=== PATIENT | female | born 1945 | race Caucasian/White ===

== ENCOUNTER → 2016-08-05 | Outpatient (CLI) | payer BC ==
[~2016-08-05] MED LIST: MOBIC; MULTI VITAMIN1 EACH PO; OYSTER CALCIUM500 MG PO
--- NOTE | ~2016-08-05 | CR63 ---
[facility] A Service of [facility] RADIOLOGY TEXT RESULTS PATIENT: PILLO BRITTON LOCATION: [facility] : 45 UNIT #: [id number] AGE: [address]: Kelly Bunch MD SEX: F ORDER DR: [id number] [facility] [address] [place], [place] [address] [id number] O MR#: [id number] Acc #: [id number] NAME: PILLO BRITTON : 1945 SEX: F STUDY DATE/TIME: 08/05/2016 15:49 UNIT: [facility] ROOM: STUDY DESCRIPTION: CR Chest 2 View Attending Physician: Kelly Bunch M.D. Referring Physician: Kelly Bunch M.D. Ordering Physician: Kelly Bunch M.D. Primary Care Physician: Kelly Bunch M.D. MEDICAL IMAGING REPORT This report is preliminary unless electronic signature is present STUDY Chest PA and lateral dated 08/05/2016 COMPARISON STUDIES None HISTORY Chest pain, syncopal episode beginning yesterday. FINDINGS PA and lateral views of the chest are obtained. Cardiovascular configuration in the chest is normal and the lungs are clear. On the lateral film, there is a curvilinear lucency over the retrocardiac area that is felt to be artifactual. CONCLUSION Negative chest. Dictated by... Ventura Plaza M.D. THIS IS AN ELECTRONICALLY VERIFIED REPORT Ventura Plaza M.D. at 08/07/2016 3:10 PM DONATO/sandi TD: 08/05/2016 22:55 JOB #: [id number] MEDICAL IMAGING REPORT Page 1 of 1 COPY
== END | disposition home or self-care (01) ==
LOC: CRAD 15:29
DX: R07.9 Chest pain, unspecified (principal); R55 Syncope and collapse
CPT/HCPCS: 71020

== ENCOUNTER → 2016-09-01 11:36 | Emergency (ER) | payer BC | END | disposition left against medical advice (07) | LOC: CED 11:36 | DX: Z53.21 Procedure and treatment not carried out due to patient leaving prior to being seen by health care provider (principal) ==